=== PATIENT | male | born 1960 | race Caucasian/White ===

== ENCOUNTER 2018-05-01 08:53 | Emergency (ER) | payer OTHER ==
[2018-05-01] MEDS ORDERED: ASPIRIN 81 MG CHEWABLE TABLET ONE ×3 (09:20→13:12)
[2018-05-01 09:28] LABS: Absolute Monocytes 0.7 K/uL (0.1-1.3); Absolute Neutrophil 3.7 K/uL (1.8-8.0); Hematocrit 42.1 % (39.6-49.0); Lymphocytes % 17.4 % (15.3-44.8); MCH 32.2 pg (27.0-35.0); MCV 91.6 fL (80-100); MPV 7.8 fL (7.6-11.3)
[2018-05-01 09:29] LABS: Protime INR 1.01
[2018-05-01 09:54] LABS: ALT/SGPT 40 U/L (12-78); AST/SGOT 17 U/L (15-37); Albumin 3.8 g/dL (3.4-5.0); Alkaline Phosphatase 27 U/L (45-117); BUN Blood Urea Nitrogen 17 mg/dL (7-18); Bicarbonate 30 mmol/L (21-32); Bilirubin Direct 0.2 mg/dL (0-0.2); Bilirubin Total 0.6 mg/dL (0.2-1.0); Glucose Level 92 mg/dL (74-106); Magnesium 2.3 mg/dL (1.8-2.4); NT PRO-BNP 14 pg/mL (<125); Potassium 4.5 mmol/L (3.5-5.1); Protein, Total 6.9 g/dL (6.4-8.2); Sodium Level 137 mmol/L (136-145); Troponin (Emerg Dept Use Only) < 0.02 ng/mL (0.0-0.045)
--- NOTE | 2018-05-01 10:45 | RAD REPORT ---
EXAM DESCRIPTION: RAD - Chest Single View - 05/01/2018 10:01 am CLINICAL HISTORY: CHEST PAIN Chest pain. COMPARISON: No comparisons FINDINGS: Portable technique limits examination quality. The lungs are grossly clear. The heart is normal in size. No displaced fractures. IMPRESSION: No acute intrathoracic process suspected.
--- NOTE | 2018-05-01 12:33 | EKG ---
Test Date: 2018-05-01 Test Time: 11:55:35 Manager Float: THANIA MEASUREMENT RESULTS: Intervals: Rate: 53 MD: 134 QRSD: 98 QT: 446 QTc: 418 [place]: P: 45 MD: 134 QRS: 17 T: 26 INTERPRETIVE STATEMENTS: Sinus bradycardia Otherwise normal ECG Compared to ECG 05/01/2018 08:59:57 No significant changes Electronically Signed On 05-01-18 12:32:40 CDT by Salvador Hallman
--- NOTE | 2018-05-01 12:34 | EKG ---
Test Date: 2018-05-01 Test Time: 08:59:57 Glycerine Plant Operator: SANDRA MEASUREMENT RESULTS: Intervals: Rate: 54 CA: 132 QRSD: 90 QT: 432 QTc: 409 [place]: P: 49 CA: 132 QRS: 19 T: 31 INTERPRETIVE STATEMENTS: Sinus bradycardia Otherwise normal ECG No previous ECG available for comparison Electronically Signed On 05-01-18 12:32:51 CDT by Salvador Hallman
[2018-05-01] MEDS ORDERED: METOPROLOL TAR 25 MG TAB ONE (13:12)
[2018-05-01] MEDS ORDERED: ENOXAPARIN 80 MG/0.8 ML SQ ONE (13:12)
--- NOTE | 2018-05-01 13:16 | ER ---
Nurse's Notes [facility] Name: Rafael Cruz Jr Age: 57 yrs Sex: Male : 1960 Arrival Date: 05/01/2018 Time: 08:56 Bed 16 Private MD: Diagnosis: Chest pain, unspecified Presentation: 05/01 08:59 Presenting complaint: Patient states: chest pains on and off for 2 years. I was in wound healing today for my Lleg wound, for 6 weeks. I told them I was having slight chest pains and Dr. Elam said to come to the ER. my leg hurts at a 6, my chest hurts at a 2. Transition of care: patient was not received from another setting of care. Onset of symptoms was 2015. Risk Assessment: Do you want to hurt yourself or someone else? Patient reports no desire to harm self or others. Risk Assessment: Do you want to hurt yourself or someone else?. Initial Sepsis Screen: Does the patient meet any 2 criteria? No. Patient's initial sepsis screen is negative. Does the patient have a suspected source of infection? No. Patient's initial sepsis screen is negative. Care prior to arrival: None. 08:59 Method Of Arrival: Wheelchair 08:59 Acuity: DELILAH 3 Triage Assessment: 09:02 General: Appears in no apparent distress. comfortable, Behavior is calm, cooperative, ch appropriate for age. Pain: Complains of pain in chest and left leg. Historical: - Allergies: 09:02 No Known Allergies; ch - Home Meds: 09:02 [place] Oral [Active]; Soma Oral [Active]; Lisinopril Oral [Active]; Buspirone Oral ch [Active]; - PMHx: 09:02 Hypertension; wound to LL leg; chronic hip pain; - PSHx: 09:02 hilda hip replacements; Hernia repair; - Immunization history:: Adult Immunizations up to date, Last tetanus immunization: not indicated for visit today. Flu vaccine is not up to date. - Social history:: Smoking status: Patient/guardian denies using tobacco, Patient/guardian denies using alcohol, street drugs. - Ebola Screening: : Patient negative for fever greater than or equal to 101.5 degrees Fahrenheit, and additional compatible Ebola Virus Disease symptoms Patient denies exposure to infectious person Patient denies travel to an Ebola-affected area in the 21 days before illness onset No symptoms or risks identified at this time. Screenin:15 Abuse screen: Denies threats or abuse. Denies injuries from another. Nutritional ph screening: No deficits noted. Tuberculosis screening: No symptoms or risk factors identified. Fall Risk None identified. Assessment: 09:33 General: Appears in no apparent distress. comfortable, slender, well groomed, Behavior ph is calm, cooperative, appropriate for age. Pain: Complains of pain in left leg and chest Pain does not radiate. Pain began chest pain began approx 2 years ago and is currently rated 2/10, leg pain began 6 weeks ago and is rated 6/10. Neuro: Level of Consciousness is awake, alert, obeys commands, Oriented to person, place, time, situation. Cardiovascular: Reports chest pain, Denies diaphoresis, lightheadedness, nausea, palpitations, shortness of breath, Capillary refill < 3 seconds in bilateral fingers Patient's skin is warm and dry. Rhythm is sinus bradycardia Chest pain is described as mild, quality is pressure, stabbing, is located in substernal area began 2 years ago episodes are intermittent. Respiratory: Airway is patent Respiratory effort is even, unlabored, Respiratory pattern is regular, symmetrical, Breath sounds are clear bilaterally. Denies shortness of breath at rest. GI: No signs and/or symptoms were reported involving the gastrointestinal system. Derm: Skin is healthy with good turgor, Skin is pink, warm \T\ dry. Wound noted left avery. Musculoskeletal: Circulation, motion, and sensation intact. Range of motion: intact in all extremities. 10:57 Reassessment: Patient appears in no apparent distress at this time. Patient and/or ph family updated on plan of care and expected duration. Pain level reassessed. Patient is alert, oriented x 3, equal unlabored respirations, skin warm/dry/pink. Pt resting quietly, awaiting test results, no complaints at this time, VSS, will continue to monitor. 12:32 Reassessment: Patient appears in no apparent distress at this time. Patient and/or ph family updated on plan of care and expected duration. Pain level reassessed. Patient is alert, oriented x 3, equal unlabored respirations, skin warm/dry/pink. Pt resting quietly, awaiting results of repeat troponin. Vital Signs: 09:02 Weight 97.52 kg; Height 6 ft. (182.88 cm); Pain 6/10; ch 09:37 BP 135 / 96; Pulse 54; Resp 18; Pulse Ox 97% on R/A; ph 10:56 BP 136 / 86; Pulse 56; Resp 16; Pulse Ox 95% on R/A; ph 12:31 BP 130 / 96; Pulse 51; Resp 16; Pulse Ox 96% on R/A; ph 13:21 BP 132 / 89; Pulse 54; Resp 18; Temp 98.0; Pulse Ox 99% on R/A; ph 09:02 Body Mass Index 29.16 (97.52 kg, 182.88 cm) ch 09:02 6 in leg, 2 in chest. ED Course: 08:56 Patient arrived in ED. as 08:57 Ricky Lezama PA is PHCP. cp 08:57 Jose Miguel Sotelo MD is Attending Physician. cp 09:00 Triage completed. ch 09:02 Arm band placed on left wrist. Patient placed in an exam room, on a stretcher, on pulse ch oximetry. EKG completed in triage. Results shown to MD. 09:10 Kaya Lopez, RN is Primary Nurse. ph 09:15 Patient has correct armband on for positive identification. Bed in low position. Call ph light in reach. Side rails up X 1. clinical research monitor on. Pulse ox on. NIBP on. 09:17 Inserted saline lock: 22 gauge in left antecubital area, using aseptic technique. ph 09:18 Patient maintains SpO2 saturation greater than 95% on room air. ph 09:33 EKG done, by radiation control technician. reviewed by Ricky LUKE. dt2 09:58 X-ray completed. Portable x-ray completed in exam room. Patient tolerated procedure jb2 well. 10:01 XRAY Chest (1 view) In Process Unspecified. EDMS 10:58 No provider procedures requiring assistance completed. ph 11:59 EKG done, by radiation control technician. reviewed by Ricky LUKE. at1 13:09 Donta Desai MD is Referral Physician. cp 13:22 IV discontinued, intact, bleeding controlled, No redness/swelling at site. Pressure ph dressing applied. Administered Medications: 09:23 Drug: Aspirin Chewable Tablet 324 mg Route: PO; ph 10:54 Follow up: Response: No adverse reaction ph Outcome: 13:09 Discharge ordered by . cp 13:21 Discharged to home ambulatory. ph 13:21 Condition: good 13:21 Discharge instructions given to patient, Instructed on discharge instructions, follow up and referral plans. medication usage, Demonstrated understanding of instructions, follow-up care, medications. 13:22 Patient left the ED. ph Signatures: Dispatcher [employer] EDMS Catherine Puckett, ERVIN RN Jon Brothers jb2 Ines Concepcion Amanda, regulator inspector EKG Tat1 Kaya Lopez RN RN ph iRcky Lezama, PA PA Lesa Bush dt2
--- NOTE | 2018-05-01 13:16 | EDPHYS ---
Physician Documentation [facility] Name: Rafael Cruz Jr Age: 57 yrs Sex: Male : 1960 Arrival Date: 05/01/2018 Time: 08:56 Bed 16 Private MD: ED Physician Jose Miguel Sotelo HPI: 05/01 09:10 This 57 yrs old Male presents to ER via Wheelchair with complaints of Chest cp Pain. 09:10 The patient or guardian reports chest pain that is located primarily in the anterior cp chest wall, left. 09:10 The pain does not radiate. The chest pain is described as sharp. Duration: The patient cp or guardian reports multiple episodes, that wax and wane, with no pattern. Modifying factors: The symptoms are alleviated by nothing. the symptoms are aggravated by nothing. Historical: - Allergies: 09:02 No Known Allergies; ch - Home Meds: 09:02 [place] Oral [Active]; Soma Oral [Active]; Lisinopril Oral [Active]; Buspirone Oral ch [Active]; - PMHx: 09:02 Hypertension; wound to LL leg; chronic hip pain; ch - PSHx: 09:02 hilda hip replacements; Hernia repair; ch - Immunization history:: Adult Immunizations up to date, Last tetanus immunization: not indicated for visit today. Flu vaccine is not up to date. - Social history:: Smoking status: Patient/guardian denies using tobacco, Patient/guardian denies using alcohol, street drugs. - Ebola Screening: : Patient negative for fever greater than or equal to 101.5 degrees Fahrenheit, and additional compatible Ebola Virus Disease symptoms Patient denies exposure to infectious person Patient denies travel to an Ebola-affected area in the 21 days before illness onset No symptoms or risks identified at this time. ROS: 09:15 Constitutional: Negative for body aches, chills, fever, poor PO intake. cp 09:15 Eyes: Negative for injury, pain, redness, and discharge. cp 09:15 ENT: Negative for drainage from ear(s), ear pain, sore throat, difficulty swallowing, difficulty handling secretions. 09:15 Cardiovascular: Positive for chest pain, Negative for edema, palpitations. 09:15 Respiratory: Negative for cough, shortness of breath, wheezing. 09:15 Abdomen/GI: Negative for abdominal pain, nausea, vomiting, and diarrhea, black/tarry stool, rectal bleeding. 09:15 Back: Negative for pain at rest, pain with movement, radiated pain. 09:15 : Negative for urinary symptoms. 09:15 Skin: Negative for cellulitis, rash. 09:15 Neuro: Negative for altered mental status, headache, syncope, near syncope, weakness. 09:15 All other systems are negative. Exam: 09:05 ECG was reviewed by the Attending Physician. cp 09:20 Constitutional: The patient appears in no acute distress, alert, awake, cp non-diaphoretic, non-toxic, well developed, well nourished. 09:20 Head/Face: Normocephalic, atraumatic. cp 09:20 Eyes: Periorbital structures: appear normal, Conjunctiva: normal, no exudate, no injection, Sclera: no appreciated abnormality, Lids and lashes: appear normal, bilaterally. 09:20 ENT: External ear(s): are unremarkable, Nose: is normal, Mouth: is normal. 09:20 Neck: ROM/movement: is normal, is supple, without pain, no range of motions limitations, no nuchal rigidity. 09:20 Chest/axilla: Inspection: normal, Palpation: is normal, no crepitus, no tenderness. 09:20 Cardiovascular: Rate: bradycardic, Rhythm: regular, Pulses: Pulses are 2+ in right radial artery and left radial artery. Heart sounds: murmur, not appreciated, rub, not appreciated, gallop, not appreciated, Edema: is not appreciated, JVD: is not appreciated. 09:20 Respiratory: the patient does not display signs of respiratory distress, Respirations: normal, no use of accessory muscles, no retractions, no splinting, no tachypnea, labored breathing, is not present, Breath sounds: are clear throughout, no decreased breath sounds, no stridor, no wheezing. 09:20 Abdomen/GI: Inspection: abdomen appears normal, Bowel sounds: active, all quadrants, Palpation: abdomen is soft and non-tender, in all quadrants, rebound tenderness, is not appreciated, voluntary guarding, is not appreciated, involuntary guarding, is not appreciated. 09:20 Back: pain, is absent, ROM is normal. 09:20 Skin: cellulitis, is not appreciated, no rash present. 09:20 Neuro: Orientation: to person, place \T\ time. Mentation: is normal, Cerebellar function: is grossly normal, Motor: moves all fours, strength is normal, Sensation: is normal. 12:03 ECG was reviewed by the Attending Physician. cp Vital Signs: 09:02 Weight 97.52 kg; Height 6 ft. (182.88 cm); Pain 6/10; ch 09:37 BP 135 / 96; Pulse 54; Resp 18; Pulse Ox 97% on R/A; ph 10:56 BP 136 / 86; Pulse 56; Resp 16; Pulse Ox 95% on R/A; ph 12:31 BP 130 / 96; Pulse 51; Resp 16; Pulse Ox 96% on R/A; ph 13:21 BP 132 / 89; Pulse 54; Resp 18; Temp 98.0; Pulse Ox 99% on R/A; ph 09:02 Body Mass Index 29.16 (97.52 kg, 182.88 cm) ch 09:02 6 in leg, 2 in chest. ch MDM: 08:57 Patient medically screened. cp 05/01 09:04 Order name: Basic Metabolic Panel; Complete Time: 09:55 cp 05/01 09:55 Interpretation: Normal except: GFR 63. cp 05/01 09:04 Order name: CBC with Diff; Complete Time: 09:48 cp 05/01 09:48 Interpretation: Normal except: EOSINOPHIL % 5.0. cp 05/01 09:04 Order name: LFT's; Complete Time: 09:55 cp 05/01 09:56 Interpretation: Normal except: ALK 27. cp 05/01 09:04 Order name: Magnesium; Complete Time: 09:55 cp 05/01 09:04 Order name: NT PRO-BNP; Complete Time: 09:55 cp 05/01 09:04 Order name: PT-INR; Complete Time: 09:48 cp 05/01 09:04 Order name: Troponin (emerg Dept Use Only); Complete Time: 09:55 cp 05/01 09:55 Interpretation: Within normal limits: TROPED < 0.02. cp 05/01 09:04 Order name: XRAY Chest (1 view); Complete Time: 13:08 cp 05/01 09:04 Order name: EKG; Complete Time: 09:05 cp 05/01 09:04 Order name: Cardiac monitoring; Complete Time: 09:30 cp 10/16 09:04 Order name: EKG - Nurse/Tech; Complete Time: 09:31 cp 05/01 11:48 Order name: EKG; Complete Time: 11:48 cp 05/01 11:48 Order name: Troponin I; Complete Time: 13:08 cp 05/01 09:04 Order name: IV Saline Lock; Complete Time: 09:31 cp 05/01 09:04 Order name: Labs collected and sent; Complete Time: 09:31 cp 05/01 09:04 Order name: O2 Per Protocol; Complete Time: 09:31 cp 05/01 09:04 Order name: O2 Sat Monitoring; Complete Time: 09:38 cp 05/01 11:48 Order name: EKG - Nurse/Tech; Complete Time: 12:31 cp EC:05 Rate is 54 beats/min. Rhythm is regular. CA interval is normal. QRS interval is normal. cp QT interval is normal. Interpreted by me. Reviewed by me. 12:03 Rate is 53 beats/min. Rhythm is regular. CA interval is normal. QRS interval is normal. cp QT interval is normal. Interpreted by me. Reviewed by me. Administered Medications: 09:23 Drug: Aspirin Chewable Tablet 324 mg Route: PO; ph 10:54 Follow up: Response: No adverse reaction ph Disposition: 16:09 Co-signature as Attending Physician, Jose Miguel Sotelo MD. rn Disposition: 05/01/18 13:09 Discharged to Home. Impression: Chest pain, unspecified. - Condition is Stable. - Discharge Instructions: Nonspecific Chest Pain, Aspirin and Your Heart. - Medication Reconciliation Form, Thank You Letter, Antibiotic Education, Prescription Opioid Use form. - Follow up: Donta Desai MD; When: 1 - 2 days; Reason: chest pain. - Problem is new. - Symptoms have improved. Signatures: Dispatcher [employer] EDMS Catherine Puckett RN RN ch Nieto, Roman, MD MD rn Hall, Patricia, RN RN ph Page, Corey, PA PA cp Corrections: (The following items were deleted from the chart) 13:22 13:09 05/01/2018 13:09 Discharged to Home. Impression: Chest pain, unspecified. ph Condition is Stable. Forms are Medication Reconciliation Form, Thank You Letter, Antibiotic Education, Prescription Opioid Use. Follow up: Donta Desai; When: 1 - 2 days; Reason: chest pain. Problem is new. Symptoms have improved. cp
== END 2018-05-01 13:22 | disposition home or self-care (01) ==
LOC: ER 08:53
DX: R07.9 Chest pain, unspecified (principal); I10 Essential (primary) hypertension
CPT/HCPCS: 36415; 71045; 80048; 80076; 83735; 83880; 84484; 85025; 85610; 93005; 99285; J1650